=== PATIENT | male | born 1945 | race Asian ===

== ENCOUNTER → 2017-10-22 | Outpatient (CLI) | payer MEDICARE ==
--- NOTE | 2017-10-22 12:30 | Diagnostic Imaging Report ---
PROCEDURE:SHOULDER COMPLETE BILATERAL INDICATION:Fall COMPARISON:None. FINDINGS: See conclusion. CONCLUSION: No acute fracture or dislocation of the bilateral shoulders. Degenerative changes of the acromioclavicular joints. Dictated by: Kapil Martinez M.D. on 10/22/2017 at 12:32 Electronically approved by: Kapil Martinez M.D. on 10/22/2017 at 12:32
== END ==
LOC: RAD 11:55
PROVIDERS: ATTEND Specialist
DX: M25.512 Pain in left shoulder (principal); W19.XXXA Unspecified fall, initial encounter

== ENCOUNTER → 2017-10-29 | Outpatient (CLI) | payer MEDICARE ==
--- NOTE | 2017-10-29 17:43 | Diagnostic Imaging Report ---
TECHNIQUE: Magnetic resonance imaging of the LEFT SHOULDER was performed WITHOUT injected contrast. HISTORY: Pain, fell COMPARISON: Left shoulder radiographs October 22, 2017 FINDINGS: MUSCLES AND TENDONS: Rotator Cuff: Tendons: Supraspinatus and Infraspinatus: Full-thickness tearing of the supraspinatus tendon with asymmetric articular greater than bursal sided tendon retraction, the full-thickness defect measures 1.1 cm (ML) x 0.9 cm (AP). Teres Minor: Intact Subscapularis: Full-thickness tearing of the distal tendon with retraction up to 3.1 cm. Muscles: Mild to moderate subscapularis edema. No muscle atrophy. Biceps Tendon: Mild medial subluxation of the long head of the biceps tendon from the intertubercular groove with thickening and intrasubstance degeneration of the tendon and probable partial tearing. GLENOHUMERAL JOINT: Glenoid Labrum: Attenuation and contour irregularity of the posterosuperior labrum. Articular Cartilage: No focal defect. Joint Fluid: Moderate effusion and synovitis. ACROMIOCLAVICULAR JOINT: Moderate hypertrophic degenerative changes of the acromioclavicular joint. Trace effusion and synovitis. BONE: The acromion is unremarkable. The bone marrow signal is heterogeneous, compatible with red marrow conversion, no specific evidence of a focal bone marrow replacing abnormality. Osseous proliferative changes and reactive edema at the lesser tuberosity. SOFT TISSUES: Fluid within the subacromial/subdeltoid bursa, in keeping with full-thickness rotator cuff tear. IMPRESSION: 1. Full-thickness supraspinatus tear. 2. Full-thickness subscapularis tear. 3. Tendinosis and subluxation of the long head of the biceps tendon. 4. Degenerative changes of the glenohumeral joint and acromioclavicular joint, including degenerative tearing of the glenoid labrum. Signed by: Dr. Mathew Mujica D.O., M.M.M. on 10/29/2017 5:39 PM
== END | disposition home or self-care (01) ==
LOC: MRI 14:16
PROVIDERS: ATTEND Specialist
DX: M25.512 Pain in left shoulder (principal); S46.812A Strain of other muscles, fascia and tendons at shoulder and upper arm level, left arm, initial encounter; M75.22 Bicipital tendinitis, left shoulder; M19.012 Primary osteoarthritis, left shoulder; W19.XXXA Unspecified fall, initial encounter

== ENCOUNTER 2018-03-31 12:23 | Emergency (ER) | payer MEDICARE ==
[~2018-03-31] VITALS: Ht 167.6 cm; Wt 72.6 kg
--- OUTSIDE RECORDS SUMMARY | 2018-03-31 12:25 | XMS REPORT ---
Author [facility] Address Unknown Phone Unavailable Care Team Providers Care Print Traffic Manager Name Role Phone WOODROW BRADSHAW Unavailable Unavailable Problems This patient has no known problems. Allergies, Adverse Reactions, Alerts This patient has no known allergies or adverse reactions. Medications This patient has no known medications. Results Test Description Test Time Test Comments Text Results Atomic Results Result Comments MRI SHOULDER LEFT WO 2017-10-29 17:29:00 [place] [address] Patient Name: GEE LIPSCOMB MR #: [id number] : 1945 Age/Sex: 71/M Req #: [id number] [facility] Physician: Ordered by: WOODROW BRADSHAW MD Report #: [id number] Location: MRI Room/Bed: Procedure: [id number] MRI/MRI SHOULDER LEFT WO Exam Date: Exam Time: REPORT STATUS: Signed TECHNIQUE: Magnetic resonance imaging of the LEFT SHOULDER was performed WITHOUT injected contrast. HISTORY: Pain, fell COMPARISON: Left shoulder radiographs October 22, 2017 FINDINGS: MUSCLES AND TENDONS: Rotator Cuff: Tendons: Supraspinatus and Infraspinatus: Full-thickness tearing of the supraspinatus tendon with asymmetric articular greater than bursal sided tendon retraction, the full-thickness defect measures 1.1 cm (ML) x 0.9 cm (AP). Teres Minor: Intact Subscapularis: Full-thickness tearing of the distal tendon with retraction up to 3.1 cm. Muscles: Mild to moderate subscapularis edema. No muscle atrophy. Biceps Tendon: Mild medial subluxation of the long head of the biceps tendon from the intertubercular groove with thickening and intrasubstance degeneration of the tendon and probable partial tearing. GLENOHUMERAL JOINT: Glenoid Labrum: Attenuation and contour irregularity of the posterosuperior labrum. Articular Cartilage: No focal defect. Joint Fluid: Moderate effusion and synovitis. ACROMIOCLAVICULAR JOINT: Moderate hypertrophic degenerative changes of the acromioclavicular joint. Trace effusion and synovitis. BONE: The acromion is unremarkable. The bone marrow signal is heterogeneous, compatible with red marrow conversion, no specific evidence of a focal bone marrow replacing abnormality. Osseous proliferative changes and reactive edema at the lesser tuberosity. SOFT TISSUES: Fluid within the subacromial/subdeltoid bursa, in keeping with full-thickness rotator cuff tear. IMPRESSION: 1. Full-thickness supraspinatus tear. 2. Full- thickness subscapularis tear. 3. Tendinosis and subluxation of the long head of the biceps tendon. 4. Degenerative changes of the glenohumeral joint and acromioclavicular joint, including degenerative tearing of the glenoid labrum. Signed by: Mauricio DavenportOHetal, M.M.M. on 10/29/2017 5:39 PM Dictated By: DESHAWN SALGADO DO 38 Transcribed By: ASHLEE on 10/29/171738 COPY TO: WOODROW BRADSHAW MD SHOULDER COMPLETE BILATERAL 2017-10-22 12:32:00 [place] [address] Patient Name: GEE LIPSCOMB MR #: [id number] : 1945 Age/Sex: 71/M Req #: [id number] Adm Physician: Ordered by: WOODROW BRADSHAW MD Report #: [id number] Location: [facility] Room/Bed: Procedure: [id number] DX/SHOULDER COMPLETE BILATERAL Exam Date: 10/22/17 Exam Time: 1205 REPORT STATUS: Signed PROCEDURE: SHOULDER COMPLETE BILATERAL INDICATION: Fall COMPARISON: None. FINDINGS: See conclusion. CONCLUSION: No acute fracture or dislocation of the bilateral shoulders. Degenerative changes of the acromioclavicular joints. Dictated by: Kapil Helton M.D. on 10/22/2017 at 12:32 Electronically approved by: Kapil Helton M.D. on 10/22/2017 at 12:32 Dictated By: KAPIL HELTON MD 1232 Transcribed By: GLORIA on 10/22/17 1232 COPY TO: WOODROW BRADSHAW MD
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
[2018-03-31 15:15] VITALS: BP 136/82
== END 2018-03-31 15:18 | disposition home or self-care (01) ==
LOC: ER 12:23
DX: S05.11XA Contusion of eyeball and orbital tissues, right eye, initial encounter (principal); S80.01XA Contusion of right knee, initial encounter; V43.52XA Car driver injured in collision with other type car in traffic accident, initial encounter; Y92.488 Other paved roadways as the place of occurrence of the external cause; I10 Essential (primary) hypertension
CPT/HCPCS: 70450; 70486; 71046; 72125; 99283